=== PATIENT | female | born 1955 | race Caucasian/White ===

== ENCOUNTER 2021-03-24 14:59 | Emergency (ER) | payer OTHER ==
[~2021-03-24] VITALS: Ht 160 cm; Wt 72.6 kg
[2021-03-24] MEDS ORDERED: NORCO5 PO (18:27)
[2021-03-24] MEDS ORDERED: CEPHALEXIN500 MG PO (18:27)
[2021-03-24 18:57] VITALS: BP 128/82
== END 2021-03-24 18:59 | disposition home or self-care (01) ==
LOC: M.ERS 14:59
DX: S63.124A Dislocation of interphalangeal joint of right thumb, initial encounter (principal); Z88.0 Allergy status to penicillin; W45.8XXA Other foreign body or object entering through skin, initial encounter; Y93.89 Activity, other specified; Y92.89 Other specified places as the place of occurrence of the external cause; Y99.8 Other external cause status